=== PATIENT | female | born 2000 | race Caucasian/White ===

== ENCOUNTER 2018-04-29 13:20 | Emergency (ER) | payer MEDICAID ==
[~2018-04-29] VITALS: Ht 162.6 cm; Wt 81.6 kg
[2018-04-29 13:26] VITALS: Ht 162.6 cm; Wt 81.6 kg
[2018-04-29 13:53] LABS: BASOPHIL % 0.7 % (0-2); PLATELET COUNT 342 x10^3mcL (130-400); RED CELL DISTRIBUTION WIDTH 14.4 % (11.5-14.5)
[2018-04-29 15:03] VITALS: BP 120/74
== END 2018-04-29 15:03 | disposition home or self-care (01) ==
LOC: ED 13:20
PROVIDERS: Emergency Medicine
DX: O03.9 Complete or unspecified spontaneous abortion without complication (principal)
CPT/HCPCS: 36415